=== PATIENT | female | born 1990 | race Caucasian/White ===

== ENCOUNTER → 2019-04-18 | Outpatient (REF) | payer OTHER ==
[2019-04-18 17:25] LABS: HEMATOCRIT 36.1 % (36.0-47.0); HEMOGLOBIN 12.3 g/dl (12.0-15.5); MEAN CORPUSCULAR HEMOGLOBIN 32.5 pg (27.0-33.0); MEAN CORPUSCULAR HGB CONC 34.1 g/dl (32.0-36.5); MEAN CORPUSCULAR VOLUME 95.3 fl (80.0-96.0); PLATELET COUNT, AUTOMATED 242 10^3/uL (150-450); RED BLOOD COUNT 3.79 10^6/uL (4.00-5.40); WHITE BLOOD COUNT 8.7 10^3/uL (4.0-10.0)
[2019-04-18 17:58] LABS: FREE T4 0.78 NG/DL (0.76-1.46); PERCENT SATURATION 30.7 % (13.2-45.0); THYROID STIMULATING HORMONE 0.608 uIU/ML (0.358-3.740)
== END ==
LOC: M SFHCPLAZ 13:55
DX: R53.83 Other fatigue (principal)

== ENCOUNTER → 2019-05-28 | Outpatient (REF) | payer OTHER | LOC: M SFHCPLAZ 16:14 | PROVIDERS: ATTEND Family Medicine | DX: Z11.9 Encounter for screening for infectious and parasitic diseases, unspecified (principal) ==

== ENCOUNTER → 2020-04-17 | Outpatient (REF) | payer OTHER | LOC: M SFHCPLAZ 10:48 | PROVIDERS: ATTEND Family Medicine | DX: Z68.1 Body mass index [BMI] 19.9 or less, adult (principal); Z70.8 Other sex counseling ==

== ENCOUNTER → 2022-12-26 | Outpatient (REF) | payer OTHER | LOC: M SFHCWAGY 17:57 | PROVIDERS: ATTEND Nurse Practitioner Family | DX: Z12.4 Encounter for screening for malignant neoplasm of cervix (principal) ==

== ENCOUNTER → 2024-04-30 | Outpatient (CLI) | payer OTHER | LOC: M WHC 08:09 | PROVIDERS: ATTEND Nurse Practitioner Family | DX: N63.12 Unspecified lump in the right breast, upper inner quadrant (principal) ==

== ENCOUNTER 2025-02-11 15:23 | Emergency (ER) | payer OTHER ==
[~2025-02-11] VITALS: Ht 160 cm; Wt 50.3 kg
[2025-02-11] MEDS: TETANUS/DIPHTH/ACEL. PERTUSSIS 0.5 ML SYR IM.IMMUN ONE (17:41)
[2025-02-11] MEDS: LIDOCAINE 1% MDV 20 ML VIAL SC ONE (17:41)
[2025-02-11] MEDS ORDERED: CEPH500C PO (18:58)
[2025-02-11 19:01] VITALS: BP 121/82
[2025-02-11] MEDS: CEPHALEXIN 500 MG CAP PO ONE (19:01)
[2025-02-11 19:08] VITALS: TEMP 96.7
[2025-02-11 19:16] VITALS: O2SAT 100
== END 2025-02-11 19:26 | disposition home or self-care (01) ==
LOC: M ED 15:23 → EDBD 15:23 → M ED 19:26
DX: S51.812A Laceration without foreign body of left forearm, initial encounter (principal); Y92.019 Unspecified place in single-family (private) house as the place of occurrence of the external cause; Y93.9 Activity, unspecified; Y99.9 Unspecified external cause status; W26.8XXA Contact with other sharp object(s), not elsewhere classified, initial encounter; F17.290 Nicotine dependence, other tobacco product, uncomplicated; Z23 Encounter for immunization; Z79.2 Long term (current) use of antibiotics